=== PATIENT | male | born 1965 | race Caucasian/White ===

== ENCOUNTER → 2022-06-16 09:06 | Outpatient (BNVA) | payer OTHER, SELFPAY | PROVIDERS: Family Provider Family Medicine; PCP Family Medicine; Visit Provider Family Medicine | DX: Z00.00 Encounter for general adult medical examination without abnormal findings (principal); I10 Essential (primary) hypertension | CPT/HCPCS: 80053; 80061 ==

== ENCOUNTER → 2023-06-21 08:11 | Outpatient (BNVA) | payer OTHER, SELFPAY | PROVIDERS: Family Provider Family Medicine; PCP Family Medicine; Visit Provider Family Medicine | DX: I10 Essential (primary) hypertension (principal); E66.9 Obesity, unspecified; Z00.00 Encounter for general adult medical examination without abnormal findings; Z13.6 Encounter for screening for cardiovascular disorders | CPT/HCPCS: 80053; 80061; 83036 ==

== ENCOUNTER → 2023-12-13 08:36 | Outpatient (BNVA) | payer OTHER, SELFPAY | PROVIDERS: Family Provider Family Medicine; PCP Family Medicine; Visit Provider Family Medicine | DX: I10 Essential (primary) hypertension (principal) | CPT/HCPCS: 80048 ==

== ENCOUNTER → 2024-12-25 08:55 | Outpatient (BNVA) | payer BC, SELFPAY | PROVIDERS: Family Provider Family Medicine; PCP Family Medicine; Visit Provider Family Medicine | DX: Z00.00 Encounter for general adult medical examination without abnormal findings (principal); Z12.11 Encounter for screening for malignant neoplasm of colon | CPT/HCPCS: 80053; 80061; G0103 ==

== ENCOUNTER 2025-03-27 10:32 | Day surgery (SDC) | payer BC, SELFPAY ==
[2025-03-27 10:50] VITALS: BP 130/83; PULSE 92; RESP 18; TEMP 36.4; O2SAT 93
[2025-03-27] MEDS: sodium chloride 0.9% 1,000 ML 15 ML IV (11:10)
[2025-03-27 11:11] VITALS: BMI 45.5
--- NOTE | 2025-03-27 11:18 | P.ANESASSM_ITS ---
Pre-Anesthetic Assessment Height/Weight: Height 1.68 m Weight 127.913 kg Temp Pulse Resp BP Pulse Ox O2 Del Method 97.6 F 92 18 130/83 93 Room Air 03/27/25 10:50 03/27/25 10:50 03/27/25 10:50 03/27/25 10:50 03/27/25 10:50 03/27/25 10:50 Preop Diagnosis: screening Operation Date: 03/27/25 12:00 Proposed Procedures p Colonoscopy 53689 G0105 Z12.11(Not Applicable) - Jeramy Turner MD Familial anesthetic complications: none Was Beta Karime taken within 24 hours: Yes Was Clonidine taken within 24 hours: N/A Last intake: Intake Last Liquid Date 03/26/25 Last Liquid Time 23:30 Last Solid Date 03/25/25 Last Solid Time 19:00 Social Alcohol (1x every two weeks) and No tobacco Exam alert, oriented x 3, clear to auscultation bilaterally and regular rate & rhythm Airway Submandibular: within normal limits Cervical ROM: within normal limits Mallampati: Class IV Dentition: full Comments: Comments: patient reports chipped teeth non-visible- bearded. Pulmonary Sleep Apnea (compliant with cpap) CV/HEM Hypertension None reported Hepatic None reported GI Gastroesophageal Reflux Disease Metabolic Hyperlipidemia and Morbid Obesity Musc/skel Weakness (left leg weakness due to trauma 20 years prior.) Neuropsych None reported Anesthetic Plan ASA status: 3 Anesthesia: MAC Medications/Allergies Home Medications ?Medication ?Instructions ?Recorded ?Confirmed ?Last Taken ?Type tadalafil 20 mg tablet 20 mg PO DAILY PRN sexual ac tivity 05/16/24 03/21/25 03/26/25 Rx #30 tabs triamcinolone acetonide 0.1 % 1 applic topical BID PRN 05/16/24 03/21/25 03/26/25 Rx topical cream hypersensitive skin/dermatit is #80 grams olmesartan 40 1 tab PO DAILY #90 tabs 02/06/1803/21/25 03/26/25 Rx mg-hydrochlorothiazide 12.5 mg tablet metoprolol tartrate 50 mg tablet 50 mg PO BID 03/21/25 03/21/25 03/26/25 History Allergies Allergy/AdvReac Type Severity Reaction Status Date / Time No Known Allergies Allergy Verified 03/27/25 10:49 Current Medications Generic Name Dose Route Start Last Admin Trade Name Freq PRN Reason Stop Dose Admin Sodium Chloride 1,000 mls @ 15 mls/hr 03/27/25 10:36 03/27/25 11:10 Sodium Chloride 0.9% IV 03/28/25 10:35 15 mls/hr .Q24H PRN Administration COLONOSCOPY FLUIDS PFSH Anesthesia Social History Smoking and tobacco/nicotine status: never used tobacco/nicotine
--- NOTE | 2025-03-27 11:38 | W.PM.OPSFHP ---
Same Day Surgery H&P Indication for Procedure/HPI DATE OF PROCEDURE: March 27, 2025 CHIEF COMPLAINT/INDICATIONFOR SURGICAL PROCEDURE: screening colonoscopy PREOP DIAGNOSIS: screening colonoscopy PLANNED PROCEDURE: Operation Date: 03/27/25 12:00 Proposed Procedures p Colonoscopy 99281 G0105 Z12.11(Not Applicable) - Jeramy Turner MD Medications/Allergies* Home Medications ?Medication ?Instructions ?Recorded ?Confirmed ?Type metoprolol tartrate 50 mg tablet 50 mg PO BID 03/21/25 03/21/25 History Allergies/Adverse Reactions Allergy/AdvReac Type Severity Reaction Status Date / Time No Known Allergies Allergy Verified 03/27/25 10:49 Current Medications: Generic Name Dose Route Start Last Admin Trade Name Freq PRN Reason Stop Dose Admin Sodium Chloride 1,000 mls @ 15 mls/hr 03/27/25 10:36 03/27/25 11:10 Sodium Chloride 0.9% IV 03/28/25 10:35 15 mls/hr .Q24H PRN Administration COLONOSCOPY FLUIDS Pertinent History/Comorbid Conditions* Social History Smoking and tobacco/nicotine status: never used tobacco/nicotine Pertinent Exam Findings alert, oriented x 3, clear to auscultation bilaterally, regular rate & rhythm and procedure specific exam findings abdomen soft, nt, nd Recommendations Risks and benefits of procedure reviewed Surgery/Procedure today Coding Level of Care Code Acute Code for Chg Fwd
[2025-03-27 12:02] VITALS: BP 124/70; PULSE 79; RESP 16; TEMP 36.4; O2SAT 95
[2025-03-27 12:10] VITALS: BP 129/66; PULSE 82; RESP 18; O2SAT 97
[2025-03-27 12:20] VITALS: BP 115/91; PULSE 71; RESP 18; O2SAT 97
--- NOTE | 2025-03-27 12:40 | ANE.PACU2 ---
Inpatient post-anesthesia follow up: Airway intact: Yes Vital signs: Temperature 97.6 F Pulse Rate 71 Respiratory Rate 18 Blood Pressure 115/91 Pulse Oximetry 97 Oxygen Delivery Me thod Room Air Oxygen Flow Rate 4 Fraction of Inspir ed Oxygen Hydration adequate: Yes Nausea and vomiting: No Pain level: 1 Mental status: Baseline
== END 2025-03-27 12:40 | disposition home or self-care (01) ==
PROVIDERS: PCP Family Medicine; Visit Provider Student in an Organized Health Care Education/Training Program
PROC: 0DJD8ZZ Inspection of Lower Intestinal Tract, Via Natural or Artificial Opening Endoscopic (ICD-10-PCS; CPT 45378; principal; 2025-03-27 12:00)
DX: Z12.11 Encounter for screening for malignant neoplasm of colon (principal); I10 Essential (primary) hypertension; K21.9 Gastro-esophageal reflux disease without esophagitis; G47.30 Sleep apnea, unspecified; E78.5 Hyperlipidemia, unspecified; E66.01 Morbid (severe) obesity due to excess calories; Z80.0 Family history of malignant neoplasm of digestive organs; Z68.42 Body mass index [BMI] 45.0-49.9, adult; Z79.899 Other long term (current) drug therapy
CPT/HCPCS: 45378; J2704; J7030